=== PATIENT | female | born 2000 | race Caucasian/White ===

== ENCOUNTER 2020-10-03 00:25 | Outpatient (CLI) | payer OTHER, SELFPAY ==
[2020-10-04 00:21] LABS: SARS-CoV-2 RNA PCR Negative
== END 2020-10-03 00:26 | disposition home or self-care (01) ==
LOC: ANHCOVIDDT 00:26
PROVIDERS: Visit Provider Otolaryngology
DX: Z01.812 Encounter for preprocedural laboratory examination (principal); Z20.822 Contact with and (suspected) exposure to COVID-19
CPT/HCPCS: C9803; U0003; U0005

== ENCOUNTER 2020-10-06 00:13 | Day surgery (SDC) | payer OTHER, SELFPAY ==
[2020-09-29 17:55] VITALS: BMI 22.8
--- NOTE | 2020-10-01 07:28 | PM.HPGS ---
History of Present Illness History of Present Illness Consent: Risks, benefits, and alternatives have been discussed and questions answered. Patient agrees to proceed with procedure. Chief complaint: chronic tonsilitis Narrative: Justin Martin is a 20 year old female multiple episodes of tonsillitis treated treated there is gross of antibiotics unresponsive to medical management Review of Systems Review of Systems: All systems reviewed & are unremarkable except as noted in HPI and below PMFSH Past Medical History Medical History (Updated 09/09/20 @ 11:44 by Pao Petty) Irregular menstruation Urinary tract infection Social History Social History (Updated 07/08/20 @ 10:07 by Kiara Ding MA) Smoking status: Never smoker Second hand tobacco smoke exposure: No Alcohol intake: never Substance use: never Substance use type: marijuana Other substance usage details: hardly ever Last use: 2019 Spiritual care concerns: No Meds Home Medications and Allergies Home Medications Medication Instructions Recorded Confirmed Type medroxyprogesterone 150 mg/mL 150 mg IM [id number] #1 ml 09/24/19 09/29/20 Rx intramuscular syringe Allergies Allergy/AdvReac Type Severity Reaction Status Date / Time No Known Allergies Allergy Unknown Verified 09/29/20 17:43 Assessment and Plan Additional Plan plan is a tonsillectomy
--- NOTE | 2020-10-05 08:31 | P.PNAN_ITS ---
Anes - Initial Pre Proc Eval Procedure: Operation Date: 10/06/20 10:00 Proposed Procedures p Tonsillectomy - Shaka Berry MD Date/Time: 10/05/20 08:31 Surgeon: Shaka Berry MD Pre Op Diagnosis: chronic tonsilitis Patient Data Age: 20 Gender: F Height: 1.73 m Weight: 68 kg Allergies Allergy/AdvReac Type Severity Reaction Status Date / Time No Known Allergies Allergy Unknown Verified 10/06/20 08:19 Home Medications Medication Instructions Recorded Confirmed Type norgestimate-ethinyl estradiol 1 tablet PO DAILY 10/06/20 10/06/20 History [Estarylla] Patient hx anesthesia problems: none Family hx anesthesia problems: none [facility] Past Medical History Medical History (Updated 09/09/20 @ 11:44 by Pao Petty) Irregular menstruation Urinary tract infection Social History Social History (Updated 07/08/20 @ 10:07 by Kiara Ding MA) Smoking status: Never smoker Second hand tobacco smoke exposure: No Alcohol intake: never Substance use: never Substance use type: marijuana Other substance usage details: hardly ever Last use: 2019 Spiritual care concerns: No Anes - Eval Final PreProcedure Day of Procedure 10/05/20 08:31 Patient weight: normal Heart: regular rate and rhythm Lungs: clear to auscultation and normal air movement Airway: Mallampati scale class II Neurological: alert and oriented Last oral intake: >/= 8 hours ASA classification: II Emergent: no Anesthetic plan: proceed Anesthesia type and monitoring: general ETT and standard monitoring Informed Consent: The patient's anesthetic plan and its attendant risks and benefits were discussed with the patient/family/POA. Questions were solicited and answers provided to the satisfaction of the patient/family/POA.
[2020-10-06] VITALS (9 sets, daily range): BP systolic 115–142; BP diastolic 65–87; PULSE 74–100; RESP 14–18; TEMP 36.3–36.5; O2SAT 99–100
--- NOTE | 2020-10-06 06:01 | PM.HPGS ---
History of Present Illness History of Present Illness Consent: Risks, benefits, and alternatives have been discussed and questions answered. Patient agrees to proceed with procedure. Chief complaint: chronic tonsilitis Narrative: Justin Martin is a 20 year old female with recurring episodes of tonsillitis treated with various courses of antibiotics unresponsive medical management Review of Systems Review of Systems: All systems reviewed & are unremarkable except as noted in HPI and below PMFSH Past Medical History Medical History (Updated 09/09/20 @ 11:44 by Pao Petty) Irregular menstruation Urinary tract infection Social History Social History (Updated 07/08/20 @ 10:07 by Kiara Ding MA) Smoking status: Never smoker Second hand tobacco smoke exposure: No Alcohol intake: never Substance use: never Substance use type: marijuana Other substance usage details: hardly ever Last use: 2019 Spiritual care concerns: No Meds Home Medications and Allergies Home Medications Medication Instructions Recorded Confirmed Type medroxyprogesterone 150 mg/mL 150 mg IM [id number] #1 ml 09/24/19 09/29/20 Rx intramuscular syringe Allergies Allergy/AdvReac Type Severity Reaction Status Date / Time No Known Allergies Allergy Unknown Verified 09/29/20 17:43 Assessment and Plan Additional Plan Plan is a tonsillectomy
--- NOTE | 2020-10-06 06:01 | WPDHPUPDATE1 ---
History and Physical Update Update Date/Time: 10/06/20 06:01 History and Physical has been reviewed, including an updated exam of the patient. There are NO changes in the patient's condition. Risks, benefits, and alternatives have been discussed and questions answered. Patient agrees to proceed with procedure.
[2020-10-06] MEDS: ACETAMINOPHEN 500 MG TABLET 1000 MG PO (08:17)
[2020-10-06] MEDS: LACTATED RINGERS 1,000 ML 30 ML IV CONT ×2 (08:40→09:54)
--- NOTE | 2020-10-06 09:29 | PM.PROC ---
Procedure Note - Detailed Date of procedure: 10/06/20 Pre-op diagnosis: chronic tonsilitis Post-op diagnosis: same Procedure performed: Tonsillectomy Description of procedure: Patient was prepped and draped in usual fashion after induction of anesthesia. The McIvor mouth gag was inserted. The tonsils were removed dissection technique hemostasis was obtained electrocautery. The mouth was inspected for bleeding. When stablized patient was awaken and brought to the recovery room in good condition. Surgeon: Shaka Berry MD Estimated blood loss (mL): 15 Drains: No Packing: No Pathology: none sent Complications: No immediate complications Condition: stable Disposition: PACU
[2020-10-06] MEDS: fentaNYL CITRATE INJ (*CRX) 100 MCG/2 ML VIAL 25 MCG IV PUSH ×4 (09:49→10:10)
[2020-10-06] MEDS: oxyCODONE (*CRX) 5 MG/5 ML ORAL SOLN IR PO (10:49)
== END 2020-10-06 11:25 | disposition home or self-care (01) ==
PROVIDERS: Visit Provider Otolaryngology
PROC: (CPT 42826; principal; 2020-10-06 10:00)
DX: J35.01 Chronic tonsillitis (principal)
CPT/HCPCS: 42826; 88302; 88304; A9270; J0330; J1100; J2250; J2405; J2704; J3010; J7120

== ENCOUNTER 2020-12-28 13:24 | Outpatient (CLI) | payer OTHER, SELFPAY ==
--- NOTE | ~2020-12-28 | XR_ITS ---
XR abdomen/kub 1V DATE: 12/28/2020 13:44 INDICATION: Low abdominal discomfort since September, constipation TECHNIQUE: AP projection, 2 views COMPARISON: None FINDINGS: There is a prominent amount of fecal material throughout the rectum and colon, consistent w ith clinical presentation of constipation. No bowel obstruction is evident. The psoas shadows are intact. No visceromegaly or significant abnormal calcification is noted. Included skeletal structures are unremarkable. IMPRESSION: Prominent amount of fecal material throughout the rectum and colon consistent with consti pation Reviewed, dictated and finalized at [facility]. Reviewed, dictated and finalized at [facility]. IMPRESSION: Prominent amount of fecal material throughout the rectum and colon consistent with constipation
== END 2020-12-28 13:25 | disposition home or self-care (01) ==
LOC: CHSIMG 13:29
PROVIDERS: PCP Physician Assistant; Visit Provider Physician Assistant
DX: K59.00 Constipation, unspecified (principal)
CPT/HCPCS: 74018

== ENCOUNTER 2021-01-04 09:01 | Outpatient (RCR) | payer OTHER, SELFPAY ==
--- NOTE | 2021-01-04 10:01 | PTOPEVAL ---
Thank you for referring Justin Martin to [facility].? The patient is scheduled to be seen for therapy? ____x/week for ___ weeks. Please review, sign, date and return this plan of care ALYSON. I agree with and certify that the following plan of care is medically necessary. Referring Physician Date Admitting Provider: Attending Provider: Paula Liang, TARYN Referring Provider: *PT Outpatient Evaluation Start: 01/04/21 08:57 Freq: Status: Active Protocol: Document 01/04/21 08:58 ACR (Rec: 01/04/21 09:59 ACR [id number]) Therapy Assessment Status Assessment Status Assessment Status Evaluation Outpatient Past Medical History Neurological History Hx Neurological Disorders No Significant History Cardiovascular History Hx Cardiac Disorders No Significant History Respiratory History Hx Respiratory Disorders No Significant History Gastrointestinal History Hx Gastrointestinal Disorders No Significant History Genitourinary History Hx Urinary Tract Infection Yes: in 2019 Musculoskeletal History Hx Musculoskeletal Disorders No Significant History Hematological History Hx Hematological Disorders No Significant History Endocrine History Hx Endocrine Disorders No Significant History HEENT History Hx Other HEENT Disorders Yes: enlarged tonsils, tmj Integumentary History Hx Skin Disorders No Significant History Reproductive History Hx Reproductive Disorders No Significant History Psychosocial History Hx Psychiatric Disorders No Significant History Pain History History of Any Previous or Ongoing No Significant History Instance of Pain Anesthesia History Hx Anesthesia Reactions No Significant History Evaluation Information Problem Diagnosis L LBP and sciatica Onset 06/06/21 Subjective Information Patient states she was at the Query Text:As Reported By Patient/ gym and thinks she did Family something wrong there. She states it was an annoying pain , but has gotten progressively worse. Patient states she went to the chiropractor when the pain got worse and got adjusted 5 times, but the last time it made the pain worse. Patient states getting out of bed, getting dressed, getting in and out of the car, and lifting are all difficult. She states she also has to reposition a lot due to the pain. She states stairs are a
== END 2021-01-28 09:20 | disposition home or self-care (01) ==
LOC: CHSPT 09:01
PROVIDERS: Visit Provider Physician Assistant
DX: M54.42 Lumbago with sciatica, left side (principal)
CPT/HCPCS: 97014; 97110; 97140; 97161; G0283

== ENCOUNTER 2021-05-26 17:05 | Emergency (ER) | payer OTHER, SELFPAY ==
--- NOTE | ~2021-05-26 | XR_ITS ---
XR chest 1V portable DATE: 05/26/2021 18:04 INDICATION: Cough, difficulty breathing TECHNIQUE: Portable AP chest on 05/26/2021 at 1758 hours COMPARISON: 06/09/2016 PA and lateral chest FINDINGS: Normal heart size. No hilar or mediastinal enlargement. No pulmonary infiltrate or consolid ation, pleural effusion or pulmonary vascular congestion or pneumothorax. Included skeletal structures are unremarkable except for minimal thoracic scoliosis. IMPRESSION: No active cardiopulmonary disease Reviewed, dictated and finalized at location [facility].
[2021-05-26 17:22] VITALS: BP 121/80; PULSE 100; RESP 20; TEMP 36.1; O2SAT 98
[2021-05-26] MEDS: ACETAMINOPHEN 325 MG TABLET 650 MG PO (18:02)
[2021-05-26] MEDS: methylPREDNISolone SOD SUCC 125 MG VIAL IM (18:02)
[2021-05-26] MEDS: cefTRIAXone 1 GM VIAL IM (18:03)
[2021-05-26] MEDS: AZITHROMYCIN 250 MG TABLET 500 MG PO (18:03)
[2021-05-26 18:04] VITALS: PULSE 83; RESP 16; O2SAT 98
[2021-05-26 18:07] VITALS: PULSE 84; RESP 16; O2SAT 99
--- NOTE | 2021-05-26 18:10 | PCRCNOTE ---
Administered 2 puffs of Albuterol inhaler
[2021-05-26 18:12] LABS: Basophils Absolute Auto 0.02 K/mm3 (0.00-0.10); Basophils Percent Auto 0.2 % (0.0-1.0); Eosinophils Absolute Auto 0.07 K/mm3 (0.02-0.50); Eosinophils Percent Auto 0.7 % (1.0-6.0); Hematocrit 39.6 % (35.0-49.0); Hemoglobin 13.1 g/dL (12.0-15.0); Immature Granulocyte Absolute 0.05 K/mm3 (0.00-0.00); Immature Granulocyte Percent A 0.5 % (0.0-0.0); Lymphocytes Absolute Auto 1.68 K/mm3 (1.10-4.50); Lymphocytes Percent Auto 17.8 % (18.0-42.0); Mean Corpuscular HGB Conc 33.1 g/dL (32.0-36.0); Mean Corpuscular Hemoglobin 30.1 pg (27.0-31.0); Mean Platelet Volume 8.4 fl (9.2-11.8); Monocytes Absolute Auto 0.89 K/mm3 (0.10-0.90); Monocytes Percent Auto 9.4 % (2.0-11.0); Neutrophils Absolute Auto 6.7 K/mm3 (1.7-7.2); Neutrophils Percent Auto 71.4 % (50.0-70.0); Platelet Count Result 256 K/mm3 (150-420); Red Blood Count 4.35 M/mm3 (4.20-5.40); Red Cell Distribution Width 11.6 % (11.6-14.4); White Blood Count 9.4 K/mm3 (4.8-10.8)
[2021-05-26 18:23] LABS: Base Excess ABG 0.5 mmol/L (0-2); HCO3 ABG 25.1 mmol/L (23-29); Oxygen Content ABG 18.4 %vol (16.0-22.0); Oxygen Saturation ABG 97.2 % (95-97); Oxyhemoglobin 96.5 % (94-100); PCO2 ABG 40.1 mmHg (35-45); PO2 ABG 99.2 mmHg (80-90); Total Hemoglobin 13.5 g/dL (12.0-18.0); pH ABG 7.41 (7.35-7.45)
[2021-05-26 18:24] LABS: Device ROOM AIR; Modified Allen's Test Pass; Site Drawn RIGHT RADIAL
[2021-05-26 18:28] LABS: Alanine Aminotransferase 39 U/L (14-59); Albumin Level 3.8 g/dL (3.4-5.0); Alkaline Phosphatase 88 U/L (46-116); Anion Gap 10 mmol/L (8-16); Aspartate Amino Transferase 17 U/L (15-37); Bilirubin,Total 0.2 mg/dL (0.00-1.00); Blood Urea Nitrogen 10 mg/dL (7-18); Calcium 8.9 mg/dL (8.5-10.1); Carbon Dioxide 28 mmol/L (21-32); Chloride 104 mmol/L (98-108); Estimated CRCL calculation 108 ml/min; Estimated Glomerular Filt Rate > 60; Glucose 121 mg/dL (70-99); Osmolality Calculated 294 mOsm/kg (285-295); Potassium 4.1 mmol/L (3.5-5.1); Sodium 142 mmol/L (136-145); Total Protein 6.9 g/dL (6.4-8.2)
--- NOTE | 2021-05-26 18:31 | ED.GENADULT ---
HPI - General Adult General Chief complaint: Unspecified Stated complaint: fever, chest congestion, SOB, vomiting, nausea Time Seen by Provider: 05/26/21 17:08 Source: patient and RN notes reviewed Mode of arrival: ambulatory Limitations: no limitations History of Present Illness complaint: mildly increasing SOB and coughing x 3 days. fever to 101F today. no acu Onset (ago): day(s) (3) Location: chest Severity: moderate Quality: other (no acute pain) Relieving factors: none Exacerbating factors: none Associated symptoms: cough, fever/chills and shortness of breath Related Data Home Medications Medication Instructions Recorded Confirmed norgestimate-ethinyl estradiol 1 tablet PO DAILY 10/06/20 05/26/21 [Estarylla] Allergies Allergy/AdvReac Type Severity Reaction Status Date / Time No Known Allergies Allergy Unknown Verified 10/06/20 08:19 Review of Systems Review of Systems: All systems reviewed & are unremarkable except as noted in HPI and below Respiratory: Respiratory: Reports no additional respiratory complaints and Reports dyspnea PMFSH Past Medical History Medical History Bronchitis Irregular menstruation Urinary tract infection Social History Social History Smoking status: Never smoker Second hand tobacco smoke exposure: No Alcohol intake: never Substance use: never Substance use type: marijuana Other substance usage details: hardly ever Last use: 2019 Spiritual care concerns: No Exam Const: General: cooperative, no acute distress and alert Nutritional Appearance: well nourished Orientation/consciousness: patient oriented x3 Limitations: no limitations HENMT: Head: normocephalic and atraumatic Ears: external ears normal and TM's normal bilaterally General nose exam: Normal external nose present and Normal nares present Face and sinus: normal facial exam Teeth and gingiva: dentition normal Throat: posterior oropharynx normal Eyes: General: appearance normal, both eyes and all related structures Eyelids: eyelids normal Conjunctivae: conjunctivae normal Sclera: sclerae normal Cornea: corneas normal Pupils: Equal, round and reactive pupils present EOM: EOMs intact bilaterally Neck: Neck: normal visual inspection, full ROM and no lymphadenopathy Chest: Chest palpation & inspection: normal inspection of the chest Resp: Effort & Inspection: normal respiratory effort and Actively coughing Auscultation: rhonchi Percussion: percussion normal Cardio: Jugular venous distension: no JVD Rate: regular rate Rhythm: regular rhythm Heart sounds: S1 normal heart sound present and S2 normal heart sound present GI: Inspection: normal to inspection GI Palp: No abdominal tenderness Percussion: Yes normal to percussion Auscultation: normal bowel sounds : General: Yes bladder normal to inspection and Yes bladder normal to palpation Back/Spine/Pelvis: Back: no CVA tenderness Thoracic/Lumbar Spine: thoracic and lumbar spine normal to inspection Skin: General skin exam: normal color and no rashes or lesions noted Rashes: no rashes Trauma: no lacerations or abrasions Hair: normal Nails: normal Neuro: General: patient oriented x3, no focal motor deficits and CN's II-XI intact bilaterally Cranial nerves: Yes CN's II-XII intact bilaterally Cognition (Neuro): normal cognition Gait exam (Neuro): Normal gait present Motor exam (neuro): 5/5 motor strength present throughout Extrem: General: normal to inspection and full ROM Psych: Appearance: grossly normal and well kempt Affect: normal affect Attitude: cooperative and Guarded attititude/behavior present Thought process: Normal thought process present Thought content: Yes Normal thought content present Judgement: Good judgement present (Psych) Course Course Emergency Course: Pt was stable in the ED. Less c
--- NOTE | 2021-05-26 18:41 | PC.NURSE ---
183 Morphine 2mg IVP given 183 Zofran 4mg IVP given 183 NS 500ml infused 1830 Zosyn3.375gm started
[2021-05-26 18:45] LABS: SARS-CoV-2 Ag Negative (Negative)
[2021-05-26 18:59] VITALS: BP 130/60; PULSE 66; RESP 16; TEMP 36.1; O2SAT 98
== END 2021-05-26 19:07 | disposition home or self-care (01) ==
PROVIDERS: Emergency Provider Emergency Medicine
DX: J40 Bronchitis, not specified as acute or chronic (principal); Z20.822 Contact with and (suspected) exposure to COVID-19
CPT/HCPCS: 36415; 36600; 71045; 80053; 82805; 85025; 87426; 94640; 96372; 99283; 99284; A9270; C9803; J0696; J2930

== ENCOUNTER 2021-09-09 10:41 | Emergency (ER) | payer OTHER, SELFPAY ==
--- NOTE | ~2021-09-09 | CT_ITS ---
EXAMINATION: CT abdomen pelvis wo con DATE: 09/09/2021 12:38 INDICATION: Right upper quadrant abdominal pain. Right flank pain. TECHNIQUE: Computed tomography (CT) of the abdomen and pelvis was performed without intravenous contr ast. Automated exposure control and iterative reconstruction technique were employed. The dose-length product was 381.80 mGy-cm. COMPARISON: CT abdomen and pelvis 08/15/2014 FINDINGS: The visualized portions of the lung bases are clear without pneumonia or pleural effusion. The heart size is normal. No pericardial effusion. The liver, gallbladder, spleen, pancreas, adrenal glands, and kidneys are normal. There is no urolithiasis. There are no dilated loops of bowel. The ap pendix is not visualized. There are no pathologically enlarged lymph nodes. There is no free intraper itoneal fluid. The bones are unremarkable. IMPRESSION: 1. No etiology for the patient's symptoms. Reviewed, dictated and finalized at [facility]. [employer]
[2021-09-09 10:58] VITALS: BP 133/84; PULSE 98; RESP 16; TEMP 36.5; O2SAT 99
--- NOTE | 2021-09-09 11:02 | PC.NURSE ---
Urine walked to lab.
[2021-09-09] MEDS: KETOROLAC (*BKC) 60 MG/2 ML VIAL IM (12:10)
[2021-09-09] MEDS: ONDANSETRON INJ 4 MG/2 ML VIAL IV PUSH (12:13)
[2021-09-09] MEDS: PANTOPRAZOLE SODIUM IV 40 MG VIAL IV PUSH (12:14)
[2021-09-09 12:20] LABS: Appearance Urine Clear (Clear); Bilirubin Urine Negative (Negative); Color Urine Yellow (Yellow); Glucose Urine UA Negative (Negative); Ketones Urine Negative (Negative); Leukocyte Esterase Ur Negative (Negative); Nitrate Urine Negative (Negative); Protein Urine Negative (Negative); Specific Grav Ur 1.025 (1.010-1.020); Urobilinogen Urine 0.2 mg/dL (0.2-1.0)
[2021-09-09 12:25] LABS: Pregnancy On Board Control Positive; Urine Pregnancy Test Negative
[2021-09-09 12:26] LABS: Add Urine Microscopic? YES; Bacteria Urine Trace /hpf; Blood Urine Trace-Intact (Negative); RBC Urine 0-2 /hpf (0-2); Squamous Epithelial Cell Urine Moderate /hpf (Few); WBC Urine None seen /hpf (0-3)
--- NOTE | 2021-09-09 13:12 | PC.NURSE ---
Pt reports feeling a little more comfortable. Pt aware results are back and Dr. Cowan should be in soon. Pt verbalized understanding.
--- NOTE | 2021-09-09 14:15 | ED.ABDPAIN ---
HPI - Abdominal Pain General Chief Complaint: Urogenital-Female Stated Complaint: rt side pain/hurts to urinate Time Seen by Provider: 09/09/21 10:43 Source: patient and RN notes reviewed Mode of arrival: ambulatory Limitations: no limitations History of Present Illness MD elicited complaint: abdominal pain Pertinent past history: past UTI Onset (ago): day(s) (1) Pain Consistency: constant Location: suprapubic Severity: moderate Pain scale (0-10): 7 Quality: cramping, aching and dull Radiation: none Migration to: no migration Exacerbating factors: nothing Relieving factors: nothing Associated symptoms: denies other symptoms, nausea and vomiting Related Data Patient : No Home Medications Medication Instructions Recorded Confirmed norgestimate-ethinyl estradiol 1 tablet PO DAILY 10/06/20 09/09/21 [Estarylla] Allergies Allergy/AdvReac Type Severity Reaction Status Date / Time No Known Allergies Allergy Unknown Verified 09/09/21 13:51 Review of Systems Review of Systems: All systems reviewed & are unremarkable except as noted in HPI and below PMFSH Past Medical History Medical History Bronchitis Irregular menstruation Urinary tract infection Social History Social History Smoking status: Never smoker Second hand tobacco smoke exposure: No Alcohol intake: never Substance use: never Substance use type: marijuana Other substance usage details: hardly ever Last use: 2019 Spiritual care concerns: No Exam Const: General: no acute distress Nutritional Appearance: well nourished Orientation/consciousness: patient oriented x3 Limitations: no limitations HENMT: Head: normal to inspection Ears: external ears normal and TM's normal bilaterally General nose exam: Normal external nose present and Normal nares present Face and sinus: normal facial exam Mouth: Yes lip normal Teeth and gingiva: dentition normal Eyes: Conjunctivae: conjunctivae normal Pupils: Equal, round and reactive pupils present EOM: EOMs intact bilaterally Neck: Neck: normal visual inspection and no lymphadenopathy Chest: Chest palpation & inspection: normal inspection of the chest Resp: Effort & Inspection: normal respiratory effort Auscultation: clear to auscultation bilaterally Cardio: Rate: regular rate Rhythm: regular rhythm GI: GI Palp: Yes Soft to palpation and Yes Tenderness to palpation present (GI) (minimal suprapubic tenderness) Auscultation: normal bowel sounds : General: Yes no CVA tenderness Back/Spine/Pelvis: Back: no CVA tenderness Skin: General skin exam: normal color Rashes: no rashes Neuro: General: patient oriented x3, moves all extremities, no meningeal signs, no focal motor deficits and CN's II-XI intact bilaterally Extrem: General: normal to inspection and no pedal edema Psych: Appearance: grossly normal and well kempt Mental Status: mental status grossly normal Affect: normal affect Attitude: cooperative Thought content: Yes Normal thought content present Course Course Emergency Course: Pt was stable in the ED, less painful. Reevaluation(s) Reevaluation #1: VSS. Pt was comfortable in the ED. Date: 09/09/21 Time: 11:41 Vital Signs Vital signs: Vital Signs Temperature 36.5 C 09/09/21 10:58 Pulse Rate 98 09/09/21 10:58 Respiratory Rate 16 09/09/21 10:58 Blood Pressure 133/84 09/09/21 10:58 Pulse Oximetry 99 09/09/21 10:58 Temperature 36.5 C 09/09/21 10:58 Pulse Rate 62 09/09/21 14:55 Respiratory Rate 16 09/09/21 14:55 Blood Pressure 116/74 09/09/21 14:55 Pulse Oximetry 98 09/09/21 14:55 MDM - Abdominal Pain Differential Diagnosis Differential diagnosis: Likely abdominal pain and gastroenteritis Medical Records Attestation: I reviewed the patient's medical records. Lab Data Attestation: I reviewed the patient
[2021-09-09] MEDS: MORPHINE SULFATE (*CRX) 2 MG/ML INJ IV PUSH (14:27)
[2021-09-09 14:55] VITALS: BP 116/74; PULSE 62; RESP 16; O2SAT 98
== END 2021-09-09 14:56 | disposition home or self-care (01) ==
PROVIDERS: Emergency Provider Emergency Medicine
DX: R09.1 Pleurisy (principal); R10.11 Right upper quadrant pain
CPT/HCPCS: 74176; 81001; 81025; 96372; 96374; 96375; 99283; 99284; C9113; J1885; J2270; J2405

== ENCOUNTER 2023-05-14 10:49 | Emergency (ER) | payer OTHER, SELFPAY ==
--- NOTE | ~2023-05-14 | XR_ITS ---
EXAMINATION: XR abdomen/kub 1V INDICATION: Constipation, left-sided abdominal pain TECHNIQUE: Supine views of the abdomen were obtained on 2 radiographs. COMPARISON: 12/28/2020 FINDINGS: There is a normal volume of colonic stool. No dilated loops of bowel are evident. An IUD is noted. IMPRESSION: 1. No radiographic correlate for the patient's symptoms. Reviewed, dictated and finalized at location [facility].
[2023-05-14 11:06] VITALS: BP 135/83; PULSE 100; RESP 18; TEMP 36.6; O2SAT 100
--- NOTE | 2023-05-14 13:22 | ED.GENADULT ---
HPI - General Adult General Chief complaint: Unspecified Stated complaint: Constipation- 11 days Time Seen by Provider: 05/14/23 11:38 History of Present Illness HPI narrative: Patient is a 23-year-old female who presents ER with constipation. Reports she has had chronic issues with stooling. She began taking mag citrate yesterday and has had a couple small bowel movements but has not had a nice formed stool last 8 to 11 days. No abdominal pain. She has tried inserting her fingers into her anus is and is only felt stool that feels like xi. No blood. Related Data Home Medications Medication Instructions Recorded Confirmed norgestimate 0.25 mg-ethinyl 1 tablet PO DAILY 10/06/20 09/09/21 estradiol 35 mcg tablet (Estarylla) Allergies Allergy/AdvReac Type Severity Reaction Status Date / Time No Known Allergies Allergy Unknown Verified 05/14/23 11:09 Review of Systems Constitutional: Constitutional: Reports no additional constitutional complaints Gastrointestinal: Gastrointestinal: Reports abdominal pain, Reports constipation, Denies diarrhea, Denies nausea and Denies vomiting Genitourinary: Genitourinary: Reports no additional female genitourinary complaints [facility] Past Medical History Medical History Bronchitis Irregular menstruation Urinary tract infection Social History Social History Smoking status: Never smoker Second hand tobacco smoke exposure: No Alcohol intake: never Substance use: never Substance use type: marijuana Other substance usage details: hardly ever Last use: 2019 Spiritual care concerns: No Exam Narrative: GENERAL: Well-appearing, well-nourished, and in no acute distress. HEAD: Normocephalic, atraumatic. ENT: Mucous membranes moist. CHEST: Clear to auscultation. No respiratory distress. HEART: Regular rate and rhythm. Normal peripheral pulses. ABDOMEN: Soft, nontender, nondistended. EXTREMITIES: Normal range of motion. No edema. NEURO: Alert and oriented x3. PSYCH: Normal mood and affect. Course Course Emergency Course: KUB normal without evidence of profound constipation. We will put on daily stool softener. Vital Signs Vital signs: Vital Signs Temperature 97.8 F 05/14/23 11:06 Pulse Rate 100 05/14/23 11:06 Respiratory Rate 18 05/14/23 11:06 Blood Pressure 135/83 05/14/23 11:06 Pulse Oximetry 100 05/14/23 11:06 Oxygen Delivery Room Air 05/14/23 11:06 Temperature 97.8 F 05/14/23 13:40 Pulse Rate 74 05/14/23 13:40 Respiratory Rate 16 05/14/23 13:40 Blood Pressure 118/68 05/14/23 13:40 Pulse Oximetry 100 05/14/23 13:40 Oxygen Delivery Room Air 05/14/23 11:06 Medical Decision Making Vital Signs Vital Signs: Vital Signs Temperature 97.8 F 05/14/23 11:06 Pulse Rate 100 05/14/23 11:06 Respiratory Rate 18 05/14/23 11:06 Blood Pressure 135/83 05/14/23 11:06 Pulse Oximetry 100 05/14/23 11:06 Oxygen Delivery Room Air 05/14/23 11:06 Temperature 97.8 F 05/14/23 13:40 Pulse Rate 74 05/14/23 13:40 Respiratory Rate 16 05/14/23 13:40 Blood Pressure 118/68 05/14/23 13:40 Pulse Oximetry 100 05/14/23 13:40 Oxygen Delivery Room Air 05/14/23 11:06 Discharge Plan Discharge Clinical Impression: Constipation Patient Disposition: Home, Self-Care Condition: Stable Instructions: Constipation (ED) Additional Instructions: Return the ER if you have fever over 100.4 ?F, you have chest pain or shortness of breath, you have additional concerns. There is not significant constipation on your x-ray but you seem to be having symptoms. It is recommended you take a stool softener daily until you are having normal bowel movements. You should also increase your water intake. Prescriptions: New docusate sodium [Col-Rite] 100 mg capsule 100 m
[2023-05-14 13:40] VITALS: BP 118/68; PULSE 74; RESP 16; TEMP 36.6; O2SAT 100
== END 2023-05-14 13:42 | disposition home or self-care (01) ==
PROVIDERS: Emergency Provider Emergency Medicine
DX: K59.00 Constipation, unspecified (principal); Z87.440 Personal history of urinary (tract) infections
CPT/HCPCS: 74018; 99283

== ENCOUNTER 2025-02-18 15:24 | Emergency (ER) | payer OTHER, SELFPAY ==
--- NOTE | ~2025-02-18 | XR_ITS ---
XR ankle LT min 3V 02/18/2025 15:40 INDICATION: Left ankle pain after injury PROCEDURE: 4 views left ankle COMPARISON: 07/31/2016 FINDINGS: Fracture, dislocation or subluxation is not identified. There is a bone island in the calca neus. The soft tissues appear within normal limits. No foreign bodies are identified. IMPRESSION: 1: NO ACUTE BONE OR JOINT ABNORMALITY IDENTIFIED. Reviewed, dictated and finalized at location B.
[2025-02-18 15:26] VITALS: BP 121/75; PULSE 107; RESP 20; TEMP 37.2; O2SAT 99
--- NOTE | 2025-02-18 15:28 | ED_ITS ---
HPI - Extremity Injury (Lower) General Chief Complaint: Extremity Injury, Lower Stated Complaint: left ankle pain Time Seen by Provider: 02/18/25 15:27 Source: patient Mode of arrival: ambulatory Limitations: no limitations History of Present Illness HPI Narrative: Patient is a 24-year-old female with a left ankle injury after stepping 1 ft down off a step into a hole in her yd. She said her dogs like to do holes in the yd. patient has pain on the lateral aspect of the left ankle. No concern for today. MD complaint: ankle injury ( Left) Onset (ago): hour(s) ( 1) Type of Injury: inversion Place: home and street/outdoors Severity: moderate Severity scale (1-10): 5 Relieving factors: immobilization Exacerbating factors: weight bearing, movement and palpation Context: walking Associated symptoms: snap/pop sensation and able to partially bear weight Other symptoms: none Treatments prior to arrival: cold therapy Related Data Home Medications ?Medication ?Instructions ?Recorded ?Confirmed ?Last Taken ?Type norgestimate 0.25 mg-ethinyl 1 tablet PO DAILY 10/06/20 09/09/21 10/04/20 History estradiol 0.035 mg tablet (Estarylla) propranolol 80 mg capsule,24 mg PO 02/18/25 Unknown History hr,extended release Allergies Allergy/AdvReac Type Severity Reaction Status Date / Time No Known Allergies Allergy Unknown Verified 02/18/25 15:26 Review of Systems Review of Systems: All systems reviewed & are unremarkable except as noted in HPI and below Constitutional: Constitutional: Reports no additional constitutional complaints Eyes: Eyes: Reports no additional eye complaints ENT: Reports system reviewed and no additional complaints, except as documented Cardiovascular: Cardiovascular: Reports no additional cardiovascular complaints Respiratory: Respiratory: Reports no additional respiratory complaints Gastrointestinal: Gastrointestinal: Reports no additional gastrointestinal complaints Genitourinary: Genitourinary: Reports no additional female genitourinary complaints Musculoskeletal: Musculoskeletal: Reports no additional musculoskeletal complaints Integumentary/Breasts: Skin/Breast: Reports system reviewed and no additional complaints, except as docu Neurologic: Reports system reviewed and no additional complaints, except as documented Psychiatric: Psychiatric: Reports no additional psychiatric complaints Endocrine: Endocrine: Reports no additional endocrine complaints Hematologic/Lymphatic: Hematologic/Lymphatic: Reports no additional hem atologic/lymphatic complaints Allergic/Immunologic: Allergic/Immunologic: Reports no additional allergic/immunologic complaints [facility] Past Medical History Medical History Bronchitis Urinary tract infection Irregular menstruation Social History Social History Smoking status: Never smoker Second hand tobacco smoke exposure: No Alcohol intake: never Substance use: never Substance use type: marijuana Other substance usage details: hardly ever Last use: 2019 Spiritual care concerns: No Exam Const: General: healthy appearing Nutritional Appearance: well nourished Orientation/consciousness: patient oriented x3 HENMT: Head: normal to inspection Ears: external ears normal Face/Nose/Sinus: Normal external nose present Eyes: Conjunctivae: conjunctivae normal Pupils: Equal, round and reactive pupils present EOM: EOMs intact bilaterally Neck: Neck: normal visual inspection Chest: Chest palpation & inspection: normal inspection of the chest Resp: Effort & Inspection: normal respiratory effort and not labored Auscultation: clear to auscultation bilaterally and no crackles Cardio: Rate: regular rate Rhythm: regular rhythm Heart sounds: no murmurs GI: Inspection: non-distended GI Palp: Yes Soft to palpation and No Tenderness to palpation present (GI) Auscultation: normal bowel sounds : General: Yes bladder normal to palpation Back/Spine/Pelvis: Back: no CVA tenderness Skin: General skin exam: normal color Rashes: no rashes Wounds: no wounds Neuro: General: patient oriented x3 Cranial nerves: Yes Nystagmus not present Speech: normal speech Extrem: General: abnormal to inspection Other: left ankle lateral aspect of the malleolus is swollen and tender to palpation without ecchymosis; slight pain on the medial aspect of the malleolus without swelling Psych: Mental Status: mental status grossly normal Affect: normal affect Attitude: cooperative Course Vital Signs Vital signs: Vital Signs Temperature 37.2 C 02/18/25 15:26 Pulse Rate 107 H 02/18/25 15:26 Respiratory Rate 02/18/25 15:26 Blood Pressure 121/75 02/18/25 15:26 Pulse Oximetry 99 02/18/25 15:26 Oxygen Delivery Room Air 02/18/25 15:26 Temperature 37.2 C 02/18/25 15:26 Pulse Rate 107 H 02/18/25 15:26 Respiratory Rate 20 02/18/25 15:26 Blood Pressure 121/75 02/18/25 15:26 Pulse Oximetry 99 02/18/25 15:26 Oxygen Delivery Room Air 02/18/25 15:26 MDM - Extremity Injury (Lower) MDM Narrative Medical decision making narrative: patient is a 24-year-old female with left ankle injury prior to arrival. Will get an x-ray at this time. Pain control. Imaging Data Attestation: I personally reviewed and interpreted this imaging study as follows: Radiologist's impression: X-ray left ankle was negative for acute process Discharge Plan Discharge Clinical Impression: Left ankle sprain Qualifiers: Encounter type: initial encounter Involved ligament of ankle: other ligament Qualified Code(s): S93.492A - Sprain of other ligament of left ankle, initial encounter Patient Disposition: Home Condition: Stable Instructions: Ankle Sprain (DC) Additional Instructions: rest, ice, elevation and compression to the area for the next couple of weeks. Also ibuprofen and Tylenol as needed for pain. Patient Language: Azeri Prescriptions: No Action ibuprofen 800 mg tablet 800 mg PO TID Qty: 20 0RF omeprazole magnesium [Prilosec OTC] 20 mg tablet,delayed release (DR/EC) 20 mg PO BID Qty: 20 0RF tramadol 50 mg tablet 50 mg PO BID PRN (Reason: pain) Qty: 6 0RF propranolol 80 mg capsule,extended release 24 hr PO norgestimate-ethinyl estradiol [Estarylla] 0.25-35 mg-mcg tablet 1 tablet PO DAILY docusate sodium [Col-Rite] 100 mg capsule 100 mg PO DAILY Qty: 10 0RF Follow-up/Referrals: UNKNOWN,DOCTOR [Primary Care Provider] - Time of Disposition: 15:58
[2025-02-18] MEDS: HYDROcodone/acetaminophen (*CRX) 5-325 MG TABLET 1 TAB PO (15:37)
--- OUTSIDE RECORDS SUMMARY | 2025-02-18 16:49 | XMS_ITS | Clinical Summary ---
Author Organization [facility] Address [address] [place] [id number] Care Team Providers Care Clinical Trial Specialist Name Role Phone Paula Liang Primary Care Provider [phone] Allergies No known active allergies Medications norgestimate-eth inyl estradioL (ORTHO TRI-CYCLEN LO) 0.18/0.215/0.25 mg-25 mcg per tablet Take 1 tablet by mouth daily Active Active Problems Problem Noted Date Diagnosed Date Constipation 03/26/2021 Assessment & Plan (03/26/2021 9:21 AM CDT): Hi fiber diet and miralax and return prn Social History Tobacco Use Types Packs/Day Years Used Date Smoking Tobacco: Never Smokeless Tobacco: Never Personal Safety Answer Date Recorded Getting School Help Needed Not on file 11/25 Comments Unknown Sex and Gender Information Value Date Recorded Sex Assigned at Not on file Legal Sex Female 11:45 AM CDT Gender Identity Not on file Sexual Orientation Not on file Obstetrics History Last Filed Vital Signs Vital Sign Reading Time Taken Comments Blood Pressure 109/88 04/25/2021 4:00 AM CDT Pulse 89 04/25/2021 4:00 AM CDT Temperature 37 C (98.6 F) 04/25/2021 2:56 AM CDT Respiratory Rate 16 04/25/2021 2:56 AM CDT Oxygen Saturation 100% 04/25/2021 4:00 AM CDT Inhaled Oxygen Concentration - - Weight 70.9 kg (156 lb 3.2 oz) 03/26/2021 9:07 A M CDT Height 172.7 cm (5' 8) 03/26/2021 9:07 AM CDT Body Mass Index 23.75 03/26/2021 9:07 AM CDT Plan of Treatment Not on file Insurance [facility] Care Teams Clinical Trial Specialist Relationship Specialty Start Date End Date Paula Liang PA [address] [place] [address] PCP - General Emergency Medicine 12/29/20
--- OUTSIDE RECORDS SUMMARY | 2025-02-18 16:49 | XMS_ITS | Data Portability ---
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 add colace BID. may do one time enema or suppository if this does not clear her out in a week or so. ONce clear, continue miralax and colace. call GI to schedule FU in 1 month. FU WWE [email or web address] Not available 03/10/2023 22:22:08 09/24/2024 09/24/2024 Annual gynecological exam performed. Patient will come back in a year unless there are new symptoms. [email or web address] Not available 09/24/2024 15:07:39 Plan of Treatment Reminders Order Date Submit Date Provider Last Modified By Organization Details Last Modified Time Details Appointments None recorded. Lab test, urine 2023 024 kelli [place], [address], [place], [address], 13:37:20 Referral None recorded. Procedures None recorded. Surgeries None recorded. Imaging US, pelvis 2022 023 [email or web address] [place], [address], [place], [address], 3 17:55:39 US, transvagina l 2022 023 [email or web address] [place], [address], [place], [address], 3 17:55:39 Medication Orders Slynd 4 mg (28) tablet 2024 025 [address] [address], [place], [address], 5 15:53:38 Slynd 4 mg (28) tablet 2023 024 [facility] [address] [address], [place], [address], 4 12:56:10 Flagyl 500 mg tablet [address] [facility], [address] [place] [address], [address], 4 14:57:51 nystatin-tr iamcinolone 100,000 unit/gram-0 .1 % topical ointment [address] [facility] [address] [facility], [address] [place] [address], [address], 4 14:57:57 Patient TargetsNo targets recorded. Patient InstructionsNo instructions recorded. Reason for Referral None Reported. Results Created Date Observation Date Name Description Value Unit Range Abnormal Flag Note LastModifiedBy Organization Detail LastModifiedTime 01/25/20 23 01/24/2023 BHCG, QUANT ITATI VE B-HCG <0.2 mIU/m L This assay was perfo rmed using [employer] ratio n reage nts and test kits. Value s obtai bucky with other assay metho ds or kits canno t be used inter lopez eably . Refer ence Range s: Non-p regna nt, preme nopau ohme women : 0.0-5 .3 mIU/m L Postm enopa usal women : 0.0-7 .0 mIU/m L Angélica l Pregn airam: Gesta ely l Age bHCG Conc. - mIU/m L 3 Weeks 5.8 - 71.7 4 Weeks 9.5 - 750 5 Weeks 217-7 138 6 Weeks 158 - 31,79 5 7 Weeks 3,697 - 162,5 63 8 Weeks 32,06 5 - 149,5 71 9 Weeks 63,80 3 - 151,4 10 10 Weeks 46,50 9 - 186,9 77 12 Weeks 27,83 2 - 210,6 12 14 Weeks 13,95 0 - 62,53 0 15 Weeks 12,03 9 - 70,97 1 16 Weeks 9,040 - 56,45 1 17 Weeks 8,175 - 55,86 8 18 Weeks 8,099 - 58,17 6 Not Available [facility] (Lab) [address] [facility], [place], [address], 01/25/2023 06:10:40 02/01/20 23 01/31/2023 CT/GC AND TRICH OMONA S VAGIN YUSUF (RRNA ), URINE chlamydia trachomatis, PCR Negati ve negati ve Not Available [facility] (Lab) [address], [place], [address], 02/01/2023 14:25:36 02/01/20 23 01/31/2023 CT/GC AND TRICH OMONA S VAGIN YUSUF (RRNA ), URINE neisseria gonorrhoeae, PCR Negati ve negati ve Not Available [facility] (Lab) [address] [facility], [place], [address], 02/01/2023 14:25:36 02/01/20 23 01/31/2023 CT/GC AND TRICH OMONA S VAGIN YUSUF (RRNA ), URINE trichomonas vaginalis ribosomal RNA (rrna) Negati ve negati ve Not Available [facility] (Lab) [address], [place], [address], 02/01/2023 14:25:36 02/01/20 23 01/31/2023 pregn airam test, urine HCG negati ve Not Available [place] [address], [place], [address], 01/31/2023 10:18:18 06/02/20 23 06/02/2023 CT/GC AND TRICH OMONA S VAGIN YUSUF (RRNA ), SWAB chlamydia trachomatis, PCR Negati ve negati ve Not Available [facility] (Lab) [address] [facility], [place], [address], 06/04/2023 06:20:31 06/02/20 23 06/02/2023 CT/GC AND TRICH OMONA S VAGIN YUSUF (RRNA ), SWAB neisseria gonorrhoeae, PCR Negati ve negati ve Not Available [facility] (Lab) [address], [place], [address], 06/04/2023 06:20:31 06/02/20 23 06/02/2023 CT/GC AND TRICH OMONA S VAGIN YUSUF (RRNA ), SWAB trichomonas vaginalis ribosomal RNA (rrna) Negati ve negati ve Not Available [facility] (Lab) [address] [facility], [place], [address], 06/04/2023 06:20:31 06/02/20 23 06/02/2023 CULTU RE: URINE result report SEE RESULT S BELOW Test: Cultu re: Urine Speci men Sourc e: Urine Voide d Speci men Type: Urine Speci men Date: 2022 3:11 PM Resul t Date: 2022 5:17 AM Resul t Statu s: Final resul t Abnor mal: No Resul ting Lab: [facility] [address] [facility] [place] [address] Tel: [phone] CULTU RE ----- ----- ----- --- No growt h in 1 day (dete ction level of 10,00 0 colon ies / ml.) Not Available [facility] (Lab) [address], [place], [address], 06/04/2023 06:20:32 09/05/20 24 09/05/2024 pregn airam test, urine HCG negati ve Not Available [place] [address], [place], [address], 09/05/2024 13:37:15 09/24/19 25 09/24/2024 IMAGE GUIDE D PAP, REFLE X HPV IF ASCUS ONLY image guided Pap, reflex HPV ASCUS only SEE RESULT S BELOW CASE REPOR T: Cytol ogy Gynec ologi bertha Repor t Case: [id number] Autho marifer g Provi emmy: Soila Doty, FELXI Colle cted: 09/24 1531 Order ing Locat ion: [place] [facility] Recei larissa: 09/25 0853 First Scree n: Margy Sanchez, CT Rescr een: Yaw hartmann, Mehrdad martin, CT Speci men: Scree ольга Pap - Image d, Cervi x STATE MENT OF ADEQU ACY: Satis facto ry for evalu ation Trans forma tion zone compo nent absen t The absen ce of an endoc ervic al compo nent was confi rmed by an addit ional screangel ner. ----- ----- ----- ----- ----- ----- ----- ----- ----- ----- ----- ----- ----- ----- ----- ----- ----- ---- FINAL DIAGN OSIS: Negat ly for Intra epith elial Pepe mendez or Viviana rosenbaum (NIL) . 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 CLINI BERTHA INFOR MATIO N: Menst rual Statu s: LMP (if appli cable ): Clini bertha Histo ry/Pr eviou s Pap: Type of Neopl lenin (if appli cable ): Signi fican t Clini bertha Findi ngs: Other Histo ry: Hormo bertha (if appli cable ): PAP EDUCA ELY L NOTE: The Pap Test is a scree ольга test with an inher ent false negat ly rate. Liqui d-bas ed sampl ing may decre ase, but will not elimi darian, false negat ly resul ts. A negat ly resul t does not precl ude the prese nce and/o r devel opmen t of disea se, since the prese nce of abnor mal cells in the sampl e depen ds on the locat ion of the lesio n and sampl ing techn ique. Tiago nued regul ar scree ольга is the best metho d of cance r preve ntion . If repor nasim cytol ogic findi ng do not corre late with physi bertha and/o r histo rical findi ngs, furth er inves tigat ion is recom sea d, as clincecy triana nted. Not Available [facility] (Lab) [address] [facility], [place], [address], 10/01/2024 13:35:35 09/24/19 25 09/24/2024 TRICH OMONA S VAGIN YUSUF (RRNA ) trichomonas vaginalis ribosomal RNA (rrna) Negati ve negati ve Not Available [facility] (Lab) [address], [place], [address], 10/01/2024 13:35:36 09/24/19 25 09/24/2024 CT/GC (ISRAEL) , THINP REP VIAL chlamydia trachomatis, PCR Negati ve negati ve Not Available [facility] (Lab) [address], [place], [address], 10/01/2024 13:35:37 09/24/19 25 09/24/2024 CT/GC (ISRAEL) , THINP REP VIAL neisseria gonorrhoeae, PCR Negati ve negati ve Not Available [facility] (Lab) [address], [place], [address], 10/01/2024 13:35:37 02/22/20 23 02/21/2023 US, pelvi s No observ ation record ed. [email or web address], [place], [address], 02/21/2023 16:15:47 02/22/20 23 02/21/2023 US, trans vagin al No observ ation record ed. [email or web address], [place], [address], 02/21/2023 16:15:37 02/22/20 23 02/21/2023 US, pelvi s No observ ation record ed. [email or web address] [address], [place], [address], 03/04/2023 15:47:21 Result Notes None recorded. Problems Name Problem SNOMED Code Status Onset Date Resolution Date Notes Provider Name and Address Organization Details Recorded Time Asthma 725239023 Active 2011 Wendi noyola [facility] 3 15:39:00 Contact dermatitis 46390513 Active 2013 Wendi noyola [facility] 3 15:39:00 Pain of temporomandi bular joint 74761213 Active Wendimarilu noyola [facility] 3 15:39:00 Chronic constipation 026466679 Active 2022 Claudia Krishnamurthy MD [address], [place], [address], , P[facility] 3 22:19:08 Intrauterine contraceptiv e device in situ 536710807 Active 2022 Claudia Krishnamurthy MD [address], [place], [address], , P[facility] 3 22:19:27 Problem Notes None recorded. Procedures Surgical History Date Name Laterality Status Provider Name and Address Organization Details Recorded Time 09/05/20 24 IUD Removal completed FRANCISCA Cunha [address], [place], [address], , [facility] 09/05/2024 13:37:03 02/01/20 23 IUD Insertion completed FRANCISCA Cunha [address], [place], [address], , [facility] 01/31/2023 10:33:31 08/17/20 21 Date of Last Pap Smear completed Suzanne [facility] 08/23/2021 10:16:12 10/12/19 21 Tonsillectomy completed Suzanne [facility] 08/23/2021 10:21:28 09/11/19 17 extraction of wisdom tooth completed Suzanne [facility] 08/23/2021 10:21:44 Imaging Results None recorded. Procedure Notes None recorded. Medical Equipment None Reported. Allergies No known drug allergies Medications Name Sig Start Date Stop Date Status Note LastModified by Organization Details LastModified Time amoxicillin 500 mg capsule TAKE 1 CAPSULE BY MOUTH 3 TIMES A DAY FOR 7 DAYS 06/02 completed Not Available Not Available Not Available Mirena 21 mcg/24 hr (up to 8 years) 52 mg intrauterin e device Take 1 device by intrauter ine route. 09/24 completed Not Available Not Available Not Available norgestimat e 0.25 mg-ethinyl estradiol 0.035 mg tablet Take 1 {tablet} every 24 hours by oral route. 06/02 completed Not Available Not Available Not Available azithromyci n 250 mg tablet 09/05 completed Not Available Not Available Not Available ibuprofen 800 mg tablet 04/06 completed Not Available Not Available Not Available Lidocaine Viscous 2 % mucosal solution SWISH AND SPIT 15ML BY MOUTH UP TO EVERY 3 HOURS NEEDED. NOT TO EXCEED 8 DOSES/24 HOURS 01/24 completed Not Available Not Available Not Available fluconazole 150 mg tablet TAKE 1 TABLET BY MOUTH AT ONSET OF SYMPTOMS FOR 2 DAYS DIRECTED. MAY REPEAT IN 72 HOURS NEEDED active Not Available Not Available No t Available fluconazole 200 mg tablet Take 1 tablet every other day by oral route as directed. active Not Available Not Available No t Available metronidazo le 0.75 % (37.5 mg/5 gram) vaginal gel Insert 1 applicato rful every day by vaginal route at bedtime for 5 days. 10/04 completed Not Available Not Available Not Available prednisone 20 mg tablet 09/05 completed Not Available Not Available Not Available propranolol ER 60 mg capsule,24 hr,extended release active Not Available Not Available Not Available clotrimazol e 1 % vaginal cream Insert 1 applicato rful every day by vaginal route at bedtime for 7 days. 01/24 completed Not Available Not Available Not Available metronidazo le 500 mg tablet Take 1 tablet twice a day by oral route with meals for 7 days. 04/24 completed Not Available Not Available Not Available ciprofloxac in 500 mg tablet 04/06 completed Not Available Not Available Not Available nystatin-tr iamcinolone 100,000 unit/gram-0 .1 % topical ointment APPLY TO THE AFFECTED AREA(S) BY TOPICAL ROUTE 2 TIMES PER DAY FOR 7 DAYS PRN 04/24 completed Not Available Not Available Not Available fluvoxamine 25 mg tablet 04/24 completed Not Available Not Available Not Available cephalexin 500 mg capsule TAKE 1 CAPSULE BY MOUTH TWICE DAILY FOR 7 DAYS active Not Available Not Available No t Available triamcinolo ne acetonide 0.1 % topical ointment APPLY A THIN LAYER TO THE AFFECTED AREA(S) BY TOPICAL ROUTE 2 TIMES PER DAY 07/18 completed Not Available Not Available Not Available nystatin 100,000 unit/gram topical cream APPLY TO THE AFFECTED AREA(S) BY TOPICAL ROUTE 2 TIMES PER DAY 07/18 completed Not Available Not Available Not Available metronidazo le 0.75 % topical cream 10/04 completed Not Available Not Available Not Available docusate sodium 100 mg capsule 06/02 completed Not Available Not Available Not Available omeprazole 20 mg capsule,del ayed release 04/06 completed Not Available Not Available Not Available fluvoxamine 50 mg tablet active Not Available Not Available Not Available methylpredn isolone 4 mg tablets in a dose pack 04/06 completed Not Available Not Available Not Available albuterol sulfate HFA 90 mcg/actuati on aerosol inhaler active Not Available Not Available Not Available propranolol 20 mg tablet 04/24 completed Not Available Not Available Not Available ondansetron 4 mg disintegrat ing tablet 04/06 completed Not Available Not Available Not Available amoxicillin 875 mg-potassiu m clavulanate 125 mg tablet 07/18 completed Not Available Not Available Not Available azithromyci n 500 mg tablet 04/06 completed Not Available Not Available Not Available bupropion HCl XL 300 mg 24 hr tablet, extended release active Not Available Not Available Not Available bupropion HCl XL 150 mg 24 hr tablet, extended release 09/05 completed Not Available Not Available Not Available hydrocodone 7.5 mg-acetamin ophen 325 mg/15 mL oral solution 04/06 completed Not Available Not Available Not Available nitrofurant oin monohydrate /macrocryst als 100 mg capsule 04/06 completed Not Available Not Available Not Available chlorhexidi ne gluconate 0.12 % mouthwash SWISH AND SPIT 15ML BY MOUTH FOR 30 SECONDS TWICE DAILY IN THE MORNING AND EVENING AFTER TOOTHBRUS WILLIAM X 7 DAYS 01/24 completed Not Available Not Available Not Available Estarylla 04/06 completed Not Available Not Available Not Available EC-Naproxen 500 mg tablet,annia yed release 1 {tablet} every 12 hours by oral route. 04/06 completed Not Available Not Available Not Available Slynd 4 mg (28) tablet Take 1 tablet every day by oral route. 2024 active Not Available Not Available Not Avai lable Vitals Date Recorded Body height Body mass index (BMI) Body weight Systolic blood pressure Diastolic blood pressure Provider Name and Address Organization Details Last Updated DateTime 09/24/2024 167.64 cm 31.9 kg/m2 33153.85 g 104 mm[Hg] 74 mm[Hg] [facility] 15:14:45 Date Recorded Body height Body mass index (BMI) Body weight Systolic blood pressure Diastolic blood pressure Provider Name and Address Organization Details Last Updated DateTime 03/10/2023 167.64 cm 29.1 kg/m2 33594.78 g 122 mm[Hg] 76 mm[Hg] Wendi Perea [facility] 3 15:38:38 Date Recorded Systolic blood pressure Diastolic blood pressure Provider Name and Address Organization Details Last Updated DateTime 06/02/2023 127 mm[Hg] 80 mm[Hg] Rica Hernandez, [facility]- [address], [place], [address], [facility] 06/02/2023 13:04:53 Date Recorded Body height Body mass index (BMI) Body weight Provider Name and Address Organization Details Last Updated DateTime 06/02/2023 167.64 cm 29.6 kg/m2 46359.84 g Amanda Kraus [facility] 06/02/2023 13:01:34 Date Recorded Body height Body mass index (BMI) Body weight Systolic blood pressure Diastolic blood pressure Provider Name and Address Organization Details Last Updated DateTime 09/05/2024 167.64 cm 32.2 kg/m2 96765.04 g 102 mm[Hg] 71 mm[Hg] Ewa Zavaleta [facility] 4 12:43:59 Social History Question Answer Notes LastModified by Organizat ion Details LastModified Time Tobacco Smoking Status Never Smoker Laly noyola, [facility] 11/15/2022 13:48:12 Do You Have An Advance Directive? No Information n ot available 04/06/2022 How Many Years Have You Consumed Alcohol? 1 Information not available 04/06/2022 Are You Blind Or Do You Have Difficulty Seeing? No [email or web address] Information n ot available 08/23/2021 What Is Your Level Of Caffeine Consumption? Occasional [email or web address] Information not available 08/23/2021 How Much Tobacco Do You Chew? None Information not available 04/06/2022 In The 14 Days Before Symptom Onset, Have You Had Close Contact With A Laboratory-confirm ed COVID-19 While That Case Was Ill? No [email or web address] Information n ot available 08/23/2021 In The 14 Days Before Symptom Onset, Have You Had Close Contact With A Person Who Is Under Investigation For COVID-19 While That Person Was Ill? No [email or web address] Information not available 08/23/2021 Have You Been To An Area Known To Be High Risk For COVID-19? No [email or web address] Information not available 08/23/2021 Are You Deaf Or Do You Have Serious Difficulty Hearing? No [email or web address] Information not available 08/23/2021 What Type Of Diet Are You Following? REGULAR [email or web address] Information n ot available 08/23/2021 What Is The Highest Grade Or Level Of School You Have Completed Or The Highest Degree You Have Received? [id number] Information not available 04/06/2022 Are There Any Guns Present In Your Home? No Information not available 04/06/2022 Have You Ever Been Counseled For Unhealthy Alcohol Use? No [email or web address] Information not available 11/15/2022 Do You Use Protection During Sex? Usually Information not available 04/06/2022 Do You Use Your Seat Belt Or Car Seat Routinely? Yes [email or web address] Information not available 08/23/2021 Do You Have Smoke And Carbon Monoxide Detectors In Your Home? Yes [email or web address] Information not available 08/23/2021 How Much Tobacco Do You Smoke? No Information not available 04/06/2022 Do You Use Sunscreen Routinely? No Information not available 04/06/2022 Has Tobacco Cessation Counseling Been Provided? No Information not available 11/15/2022 Have You Used IV Drugs? No Information not available 04/06/2022 Do You Have Difficulty Walking Or Climbing Stairs? No Information not available 11/15/2022 Sex: Unknown Functional Status Question Answer Note LastModified by Organizat ion Details LastModified Time Do you use any illicit or recreational drugs? No [email or web address] Information not available 08/23/2021 Do you or have you ever used any other forms of tobacco or nicotine? Yes [email or web address] Information not available 11/15/2022 What is your level of alcohol consumption? Occasional Information not available 08/23/2021 Are you able to walk? YESWOREST [email or web address] Information not available 08/23/2021 Are you able to care for yourself? 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 No Information not available 11/15/2022 Do you or have you ever used e-cigarettes or vape? Former user of electronic cigarettes quite 2017 [email or web address] Information not available 11/15/2022 What is your exercise level? Occasional [email or web address] Information not available 08/23/2021 Mental Status Question Answer Note LastModified by Organization D etails LastModified Time Do you feel stressed (tense, restless, nervous, or anxious, or unable to sleep at night)? [id number] [email or web address] Information not available 08/23/2021 Family History Relationship Description Onset Age of this Age Resolved Age Notes LastModified by Organization Details LastModified Time Maternal Grandmother Diabetes mellitus Not available 2022 14:58:18 Maternal Grandfather Hypertensive disorder Not available 08/23 10:18:03 Mother Cyst of ovary [email or web address] Not available 2022 13:48:11 Mother History of endometriosi s [email or web address] Not available 2022 13:48:11 Medical History Condition Response Allergies (Food, seasonal, environmental ) N Other N Breast Cancer N Drug/Latex Allergies/Reactions N Blood Transfusion N Dermatologic Disorders N Lung Disease N Defects or Inherited Disease N Breast Problem N Gestational Diabetes N Hematologic disorders N Anesthesia Complications N History of STI N Deep Vein Thrombosis N Polycystic ovary syndrome N Anxiety Disorder N Autoimmune disease N Arthritis N Infertility N Polyps N Acid Reflux (GERD) N History of abnormal pap N Cancer N Stroke N Varicosities N Neurologic/Epilepsy N Endometriosis N High Cholesterol N Headaches Y Fibromyalgia N Kidney Disease N Heart Problems N Kidney or Bladder Problems N Thyroid Problems N GI Problems N Eating Disorder N Anemia N Art (IVF or FET) N Psychiatric Illness N Ovarian Cancer N Diabetes N Pulmonary (TB, Asthma) N Hepatitis/Liver Disease N No Past Medical History N Eczema N Urinary Tract Infection N Abuse/Domestic Violence N Asthma N Trauma/Violence N Depression/ depression N Heart Disease N Pre-Eclampsia N Hypertension N Osteoporosis N Thrombophilias N Gynecological History Statement/Question Response Date of Last Mammogram Flow Moderate Date of LMP 09/24/2024 N Was last menstrual period normal Y STIs/STDs N Date of control 09/05/2024 Date of Last Colonoscopy BCPs Desired Control Method BCPs Abnormal Pap N On BCP's at Conception? N Colposcopy HPV Vaccine N Duration of Flow (days) 6 Current Control Method BCPs Sexually Active? Y Menses Monthly Y Date of DEXA bone scan Age of first menstrual cycle 15 Date of Last Pap Smear 08/17/2021 Sexual Problems? N LMP Approximate N Obstetrics History GPAL:G 1 P 0 0 1 0 Type Value Induced 1 Living 0 Total 1 Immunizations Vaccine Type Date Status Note Provider Nam e and Address Organization Details Recorded Time HPV9 7 completed Wendi noyola, [facility] 03/10/2023 15:39:03 HPV, quadrivalent 4 completed Wendimarilu noyola [facility] 03/10/2023 15:39:04 Hep A, ped/adol, 2 dose 7 completed Wendi noyola [facility] 03/10/2023 15:39:04 meningococcal MCV4P 7 [facility] 03/10/2023 15:39:04 Past Encounters Encounter ID Performer Location Encounter Start Date Encounter Closed Date Diagnosis/Indication Diagnosis SNOMED-CT Code Diagnosis ICD10 Code Diagnosis Note [id number] [address],[facility] [place] [address] 08/17/2021 12:17:12 08/17/2021 13:29:35 Mass of right breast [id number] 1833371 N63.10 US ordered Gynecologi c examination 64030498 Z01.419 Z11.3 Z11.8 [id number] Soila Doty [facility] [address],[place] [address] 04/06/2022 12:26:58 04/06/2022 13:48:49 Vaginitis 53697446 N76.0 Suspect BV and yeastVulva r care guidelines discussed in-depthVa ginitis panel sentSTI endocervic al testing sentRx sentCondom use encouraged RTC if symptoms persist past treatment Time spent in visit is a total of 30 mins with at least 50% of visit consisting of counseling and review of plan of care. Venereal d isease screening [id number] Z11.3 Unprotecte d sexual intercourse 6414522 Z72.51 [id number] FRANCISCA Cunha [facility] [address],[place] [address] 07/18/2022 14:12:21 07/18/2022 18:15:00 Vaginitis 56226779 N76.0 Suspect yeast/BV on examVagini tis panel sentSTI endocervic al testing sentRx sent, R/B of medication discussedV ulvar care guidelines discussed in-depth Time spent in visit is a total of 25 mins with at least 50% of visit consisting of counseling and review of plan of care. Venereal d isease screening 118973412 Z11.3 Contracept ion care management 628011279 Z30.9 Light monthly menses on OCP, she would like UPT today.UPT (-) Constipation 45718401 K5 9.00 Continue to f/u with GI. Continue miralax / fiber regimentED precaution s discussed [id number] FRANCISCA Cunha [facility] [address],[place] [address] 10/04/2022 14:58:09 10/04/2022 15:29:22 Venereal disease screening 760105976 Z11.3 Vulvar irritation noted on examSuspec t yeast vs STIVaginit is panel sentSTI testing sentUA today WNLCx sentRx sent for fluconazol eShe has nystatin/t riamcinolo ne ointment at home, use BID x 5 daysVulvar care guidelines discussedC ondom use encouraged Time spent in visit is a total of 22 mins with at least 50% of visit consisting of counseling and review of plan of care. Vulval irritation 115351 003 N90.89 Vaginal discharge 792069 006 N89.8 Urinary symptoms 8680822 08 R39.9 Vaginitis 08523969 N76.0 [id number] FRANCISCA Cunha [facility] [address],[place] [address] 11/15/2022 13:48:06 11/15/2022 15:36:35 Vaginitis 97408317 N76.0 Irritation noted on examVagini tis panel sentSTI endocervic al testing sentHSV PCR sent, r/o HSV lesion vs irritation UPT (+), discussed this result with patient. She was not trying for , missed some of her OCPs recently. She has been having some symptoms (breast tenderness and bloating). She is undecided on how she would like to proceed. Options counseling provided.b hcg ordered, will have OB triage reach out to her tomorrow with resultRx sent for suspected yeast infection Time spent in visit is a total of 45 mins with at least 50% of visit consisting of counseling and review of plan of care. Venereal d isease screening 213534727 Z11.3 Contracept ion care management 253304241 Z30.9 test positive 804984928 Z32.01 Lesion of vulva 58462480 6 N90.89 lesion noted. Present for the past 1-2 years. No symptoms. Dark/irreg ular borders. Biopsy recommende d. She will consider. [id number] FRANCISCA Cunha [facility] [address],[place] [address] 01/24/2023 15:40:08 01/25/2023 10:21:43 Past history of induced termination of 981527689 Z98.890 Contracept ion care [place] 879623805 Z30.9 [facility] [place] at non-pregna ncy levelall BC options discussed, would like Mirena IUD She has been counseled on all of the r/b/a of placement of an intrauteri ne device that include but are not limited to uterine perforatio n, injury to cervix, vagina, bladder, and bowel.Risk s of bleeding due to injury or increased irregular bleeding due to progestin effect of the device. Risks of infection would be increased within the first 21 days of placement with concommita nt cervicitis . She understand s that the device will need to be removed in this instance due to increased risk of Pelvic inflammato ry disease. Patient is aware she is at higher risk for STD and if contracted she could lose her fertility. Pt is aware that if occurs that she should contact office immediatel y to rule out ectopic which could be life threatenin g. IUD will also need to be removed and this could cause miscarriag e. Patient also informed that in the event her strings are absent or embedded at the time of removal she may need to have the IUD surgically removed. RTC on days 1-5 of next period for insertionw e discussed treatment options for depression , medication management discussed. counseling discussed. Declines medication at this time, counseling list given - encouraged to schedule. She will let us know if she decides to pursue medication options. Precaution s discussed. Time spent in visit is a total of 30 mins with at least 50% of visit consisting of counseling and review of plan of care. Depressive disorder 3548 9007 F32.A [id number] FRANCISCA Cunha [facility] [address],[place] [address] 01/31/2023 10:05:17 01/31/2023 11:13:04 Insertion of intrauterine contraceptive device 65439979 Z30.430 She has been counseled on all of the r/b/a of placement of an intrauteri ne device that include but are not limited to uterine perforatio n, injury to cervix, vagina, bladder, and bowel.Risk s of bleeding due to injury or increased irregular bleeding due to progestin effect of the device. Risks of infection would be increased within the first 21 days of placement with concommita nt cervicitis . She understand s that the device will need to be removed in this instance due to increased risk of Pelvic inflammato ry disease. Patient is aware she is at higher risk for STD and if contracted she could lose her fertility. Pt is aware that if occurs that she should contact office immediatel y to rule out ectopic which could be life threatenin g. IUD will also need to be removed and this could cause miscarriag e. Patient also informed that in the event her strings are absent or embedded at the time of removal she may need to have the IUD surgically removed. She was informed of the above and properly consented. IUD placed w/o complicati on. Patient should return to office after next period to check for string placement. Patient to expect irregular bleeding but should be seen in the ED if bleeding increases to soaking a pad an hour for at least 2 hours. She verbalized understand ing.RTC in 1 month for string check Venereal d isease screening 079631024 Z11.3 Screening procedure 2012 5006 Z13.9 [id number] Claudia Krishnamurthy MD [facility] [address],[place] [address] 02/21/2023 14:35:29 02/21/2023 16:17:32 Pain in pelvis 24246428 R10.2 [id number] Claudia Krishnamurthy MD [facility] [address],[place] [address] 03/10/2023 15:25:45 03/10/2023 23:00:44 Chronic constipation 143752430 K59.09 Lower abdominal pain 545 26697 R10.30 Surveillan ce of intrauterine device contraception done [id number] 66610 Z30.431 [id number] Rica Hernandez [facility] [address],[place] [address] 06/02/2023 12:51:02 06/02/2023 13:25:45 Venereal disease screening 680553692 Z11.3 Sent Vaginitis 93983058 N76.0 Suspect BV on examWill send RxSTD updated per request Counseled on medication R/B's, Most common side effects, & use. All questions were answered to patient satisfacti on. Time spent in visit is a total of 15 mins with at least 50% of visit consisting of counseling and review of plan of care. Urinary symptoms 5497880 08 R39.9 Urine dip/urine culture sentWill update if any issues. IUD check 340005011 Z30. 431 IUD appear to be in place on exam [id number] Soila Doty FELIX [facility] [address],[place] [address] 09/05/2024 12:26:31 09/05/2024 14:02:50 Removal of intrauterine contraceptive device done 3444574410 24069 Z30.432 Pt desired IUD removalMir rhonda IUD removed (see procedure note)alter yuhaaviatam BC options discussedi nt in POPr/b/a reviewed, rx sentRTC for WWE (due for pap) Time spent in visit is a total of 20 mins with at least 50% of visit consisting of counseling and review of plan of care. Contracept ion care management 144451252 Z30.9 [id number] Soila oDty FELIX [facility] [address],[place] [address] 09/24/2024 15:02:33 09/24/2024 15:54:01 Gynecologic examination 03329094 Z01.419 WWEBC - slyndPap - done todaySTI screen - declinedRo utine labs - PCPRTC in 1 yr or sooner if needed It is strongly advised to have an annual flu shot and up can obtain at most pharmacies . If you have not had a TDap shot in the last 10 years you should obtain one as well. Discussed with patient & provided with informatio n regarding the HPV vaccine if applicable . Encourage safe sexual practices, to use condoms and limit partners if not already in a monogamous relationsh ip. Do monthly self breast exams. BRCA testing is now available for patients with strong genetic history of female cancer. If interested contact the office. Engage in regular exercise. Avoid tobacco and illicit drugs. This lifestyle behavior pattern will lead to less health conditions and longer life span. If BMI greater than 25 dietary consult advised. Questions answered. [facility] 609733572 Z30.9 Health Concerns Section Related Observation LastModified by Organization Detai ls LastModified Time None Recorded Concern Status LastModified by Organization Details LastModified Time None Recorded Advance Directives Directive N: Payers Encounter Date Sequence Insurance Name Policy Number Policy Espinosa Covered Member ID Espinosa Member ID Guarantor Name 02/21/2023 1 [facility] (MEDICAID HMO) [id number] 0003 [place] [id number] Marria [place] 03/10/2023 1 [facility] (MEDICAID HMO) [id number] 0003 [place]riah [place] [id number] Marria [place] 06/02/2023 1 [facility] (MEDICAID HMO) [id number] 0003 Marri[place] [id number] Marria [place] 09/05/2024 1 [facility] (MEDICAID HMO) [id number] 0003 [place]ri[place] [id number] Marria [place] 09/24/2024 1 [facility] (MEDICAID HMO) [id number] 0003 Marriah [place] [id number] Marria [place] Notes Date Note Type Note Provider Name and Address Organization Details Recorded Time 03/10/2023 text/html 22yo her e for follow up IUD check and abdominal pain. Mirena placed 01/31. Has had daily sharp stabbing pain in BLQ, multiple times daily. Had it sometimes before the IUD also. Also a lot of brown spotting since insertion. No more red bleeding. US on 02/21 showed normal uterus, normal fundal IUD placement, and normal ovaries. She reports a history of chronic constipation with BMs lately every 10-11 days. She has seen GI within the last year and is taking miralax once daily, supposed to do twice daily, but not helping. Claudia Krishnamurthy MD [address], [place], [address], [facility] 03/10/2023 22:23:28 06/02/2023 text/html Here today complaints of vulvar irritation, cloudy urine, ??vag odor, d/c. Neg pain of abd/pelvis/flankNeg urinary sx's except cloudy urineNeg GI sx'sNeg N/V/F/C/D+vulvar irritation/itching/ feels rawRequests std screen swabSmall amt of brown spotting with IUD placed 01/2023. FRANCISCA Escobar-[facility] [address], [place], [address], , [facility] 06/02/2023 13:23:11 09/05/2024 text/html 24yopresents for Mirena IUD removal.would like to discuss alternative BC options, int in a pill last pap 08/2021 : mamadou has a h/o migraine with aura FRANCISCA Cunha [address], [place], [address], , [facility] 09/05/2024 13:38:52 09/24/2024 text/html Annual GYNReport ed bypatient.Menstrual cycle:Normal menses Urinary symptoms:No hematuria; No incontinence Vulva:No genital lesion Vagina:Normal vaginal discharge Breast:No breast pain; No breast lump; No nipple discharge Current Contraception:Satisf ied with current contraception; Oral contraceptives Sexual complaints:No sexual complaints; No pain during intercourse; Normal libido Menopausal Symptoms:No menopausal symptoms; Normal vaginal lubrication Psychological symptoms:No depression; No anxiety; No PMDD Preventive measures:Encourage self breast examination; Encourage regular exercise; Encourage no tobacco use; Encourage regular mammograms starting age 40Notes:24yo wweBC - slyndno h/o abnormal papslast pap 2020 : mamadou FRANCISCA Cunha [address], [place], [address], , [facility] 09/24/2024 15:53:53 OBGyn Episode Ob Episode Information Episode Created Date Number of Fetuses Patient Bloodtype Patient rh Status Prepregnancy Weight lbs Domestic Partner Domestic Partner Phone Father Name Technical Mgr Status 01/26/20 23 1 CLOSED Fetus Data First Name Last Name Admitted to NICU Weight (g) Sex Living Outcome Pediatric Complications Fetus ID Race Codes Race Delivery Type Earle Calculation Initial Earle Date Initial Exam Date Initial Exam Provider Initial Ultrasound Date Last Menstrual Period Date Ultra Sound Weeks Gestation 0 Eighteen To Twenty Week Earle Update Ultra Sound Date Fundal Height At Umbil Quickening Date Ultra Sound Latest Weeks Gestation Final Earle Confirmed By Final Earle Confirmed Date Final Earle Date Ultra Sound Latest Days Gestation 0 0 Menstrual History Last Menstrual Date Menses Monthly On Bcp Conception Prior Menses Frequency Hcg Plus Date Menarche Onset Age Delivery Information Delivery Date Delivery Type Labor Anesthesia Weeks Gestation Incision Type Labor Labor Length Hrs Delivered By Post Complications Tubal Sterilization Discharge Date Comments 3 terminat i on Discharge Information Feeding Method Contraceptive Method Maternal HG B and HCT Levels
--- OUTSIDE RECORDS SUMMARY | 2025-02-18 16:49 | XMS_ITS | Referral Summary ---
Author Organization [facility] Address [address] [place] [address] Care Team Providers Care Trestle Mechanic Name Role Phone Paula Liang Primary Care Provider [phone] Allergies No known active allergies Medications norgestimate-eth [...] on file Sexual Orientation Not on file Last Filed Vital Signs Vital Sign Reading [...] Plan of Treatment Not on file Insurance [facility] Care Teams Trestle Mechanic Relationship Specialty Start Date End Date Paula Liang PA [address] [place] [address] PCP - General Emergency Medicine 12/29/20
--- OUTSIDE RECORDS SUMMARY | 2025-02-18 17:15 | XMS_ITS | Clinical Summary ---
Author Organization [facility] Address [address] [place] [id number] Care Team Providers Care Sample Builder Name Role Phone Paula Liang Primary Care Provider [phone] Allergies No known active allergies Medications norgestimate-eth [...] Plan of Treatment Not on file Insurance [facility] Care Teams Sample Builder Relationship Specialty Start Date End Date Paula Liang PA [address] [place] [address] PCP - General Emergency Medicine 12/29/20
--- OUTSIDE RECORDS SUMMARY | 2025-02-18 17:15 | XMS_ITS | Referral Summary ---
Author Organization [facility] Address [address] [place] [address] Care Team Providers Care Change Advisor Name Role Phone Paula Liang Primary Care Provider [phone] Allergies No known active allergies Medications norgestimate-eth [...] Plan of Treatment Not on file Insurance [facility] Care Teams Change Advisor Relationship Specialty Start Date End Date Paula Liang PA [address] [place] [address] PCP - General Emergency Medicine 12/29/20
== END 2025-02-18 16:32 | disposition home or self-care (01) ==
LOC: CHSED 16:13
PROVIDERS: Emergency Provider Emergency Medicine
DX: S93.492A Sprain of other ligament of left ankle, initial encounter (principal); W17.2XXA Fall into hole, initial encounter
CPT/HCPCS: 29515; 73610; 99283; A9270; L4350